=== PATIENT | female | born 1965 | race African-American/Black ===

== ENCOUNTER 2018-09-27 11:44 | Inpatient (IN) | payer OTHER ==
[2018-09-27 12:27] VITALS: BMI 21.6
--- NOTE | 2018-09-27 13:22 | HP ---
CIWA Score Nausea/Vomitin-No Nausea/No Vomiting Muscle Tremors: None Anxiety: 0-No Anxiety, at Ease Paroxysmal Sweats: No Perspiration Orientation: 0-Oriented Tacttile Disturbances: 0-None Auditory Disturbances: 0-None Visual Disturbances: 0-None Headache: 0-None Present - Admission Criteria OASAS Guidelines: Admission for Medically Managed Detox: Requires at least one of the followin. CIWA greater than 12 2. Seizures within the past 24 hours 3. Delirium tremens within the past 24 hours 4. Hallucinations within the past 24 hours 5. Acute intervention needed for co occurring medical disorder 6. Acute intervention needed for co occurring psychiatric disorder 7. Severe withdrawal that cannot be handled at a lower level of care (continued vomiting, continued diarrhea, abnormal vital signs) requiring intravenous medication and/or fluids 8. Patient presents the following: None of the above Admission Criteria Met: Admission criteria not met Admission ROS S - HPI Chief Complaint: alcohol, crack/cocaine, marijuana rehabilitation Allergies/Adverse Reactions: Allergies Allergy/AdvReac Type Severity Reaction Status Date / Time No Known Allergies Allergy Verified 09/27/18 12:14 History of Present Illness: 53 yo female with hx of nicotine, marijuana, crack/cocaine, alcohol dependence is here seeking rehabilitation. Reports was referred from [facility]. Longest period of sobriety one year and four months, reports relapsed two weeks ago. PMHX: glaucoma bilateral, HTN, HIV. Psych: depression and anxiety, insomnia on lexapro and celexa. Denies hx of seizures or blackouts. Last detox three years a [facility]. Exam Limitations: No Limitations - Ebola screening Have you traveled outside of the country in the last 21 days: No Have you had contact with anyone from an Ebola affected area: No - Review of Systems Constitutional: Chills EENT: reports: See HPI Respiratory: reports: No Symptoms reported Cardiac: reports: No Symptoms Reported GI: reports: No Symptoms Reported : reports: Burning (since this past thursday) Musculoskeletal: reports: Joint Pain Integumentary: reports: No Symptoms Reported Neuro: reports: No Symptoms reported Endocrine: reports: Increased Thirst Hematology: reports: See HPI Psychiatric: reports: Orientated x3, Anxious Other Systems: Reviewed and Negative Patient History - Patient Medical History Hx Anemia: No Hx Asthma: No Hx Chronic Obstructive Pulmonary Disease (COPD): No Hx Cancer: No Hx Cardiac Disorders: No Hx Congestive Heart Failure: No Hx Hypertension: Yes Hx Hypercholesterolemia: No Hx Pacemaker: No HX Cerebrovascular Accident: No Hx Seizures: No Hx Dementia: No Hx Diabetes: No Hx Gastrointestinal Disorders: No Hx Liver Disease: No Hx Genitourinary Disorders: No Hx Sexually Transmitted Disorders: Yes (gorrhea ) Hx Renal Disease (ESRD): No Hx Thyroid Disease: No Hx Human Immunodeficiency Virus (HIV): No Hx Hepatitis C: No Hx Depression: Yes (on lexapro ) Hx Suicide Attempt: No Hx Bipolar Disorder: No Hx Schizophrenia: No - Patient Surgical History Past Surgical History: No - PPD History Previous Implant?: No - Reproductive History Patient is a Female of Child Bearing Age (11 -55 yrs old): No - Smoking Cessation Smoking history: Current every day smoker Have you smoked in the past 12 months: Yes Aproximately how many cigarettes per day: 3 Hx Chewing Tobacco Use: No Initiated information on smoking cessation: Yes 'Breaking Loose' booklet given: 09/27/18 - Substance & Tx. History Hx Alcohol Use: Yes Hx Substance Use: Yes Substance Use Type: Alcohol, Cocaine, Marijuana Hx Substance Use Treatment: Yes (Last detox three years a [facility] ) - Substances abused Alcohol Substance route: Oral Frequency: Daily Amount used: 1/5th timur, 1 beer ( 40 oz can), 1 bottle wine - 1L Age of first use: 9 Date of last use: 09/24/18 Crack Substance route: Smoking Frequency: 3-6 times per week Amount used: $80 Age of first use: 16 Date of last use: 09/24/18 Marijuana/Hashish Substance route: Smoking Frequency: 3-6 times per week Amount used: 1 bag Age of first use: 9 Date of last use: 09/24/18 Family Disease History - Family Disease History Family Disease History: Heart Disease: Mother (HTN, alcoholism), Sister (HTN, alcoholism), Other: Brother (alcoholism), Sister Admission Physical Exam [facility] - Vital Signs Vital Signs: Vital Signs - 24 hr 09/27/18 12:22 Temperature 98.1 F Pulse Rate 80 Respiratory 18 Rate Blood Pressure 135/105 H - Physical General Appearance: Yes: Appropriately Dressed, Thin, Anxious HEENTM: Yes: EOMI, Hearing grossly Normal, Normal ENT Inspection, Normocephalic , Normal Voice, QIANA, Pharynx Normal, Tm's normal Respiratory: Yes: Chest Non-Tender, Lungs Clear, Normal Breath Sounds, No Respiratory Distress, No Accessory Muscle Use Neck: Yes: Within Normal Limits Breast: Yes: Breast Exam Deferred Cardiology: Yes: Regular Rhythm, Regular Rate Abdominal: Yes: Normal Bowel Sounds, Non Tender, Flat, Soft Genitourinary: Yes: Within Normal Limits Back: Yes: Normal Inspection Musculoskeletal: Yes: full range of Motion, Gait Steady, Pelvis Stable Extremities: Yes: Normal Capillary Refill, Normal Range of Motion, Other (+ varicose veins b/l lower extremities) Neurological: Yes: public health technologist II-XII NML intact, Fully Oriented, Alert, Motor Strength 5/5, Normal Mood/Affect, Normal Response Integumentary: Yes: Normal Color, Dry, Warm Lymphatic: Yes: Within Normal Limits - Diagnostic (1) Alcohol dependence Current Visit: Yes Status: Acute Qualifiers: Substance use status: uncomplicated Qualified Code(s): F10.20 - Alcohol dependence, uncomplicated (2) Nicotine dependence Current Visit: Yes Status: Acute Qualifiers: Nicotine product type: cigarettes (3) Cocaine dependence Current Visit: Yes Status: Acute Qualifiers: Substance use status: uncomplicated Qualified Code(s): F14.20 - Cocaine dependence, uncomplicated (4) Marijuana dependence Current Visit: Yes Status: Acute (5) Human immunodeficiency virus (HIV) disease Current Visit: Yes Status: Chronic (6) Essential (primary) hypertension Current Visit: Yes Status: Chronic (7) Glaucoma Current Visit: Yes Status: Chronic Qualifiers: Glaucoma type: unspecified Laterality: bilateral Qualified Code(s): H40.9 - Unspecified glaucoma Breathalyzer - Breathalyzer Breathalyzer: 0 POC Urine test - Test device test lot number: [id number] Expiration date: 02/13/20 - Control test control: Yes - Result Urine Test Results: Negative - NO line present Urine Drug Screen - Test Device Lot number: [id number] Expiration date: 05/14/20 - Control Is test valid?: Yes - Results Drug screen NEGATIVE: No Urine drug screen results: THC-Marijuana, JEAN-Cocaine Inpatient Rehab Admission - Rehab Decision to Admit Inpatient rehab admission?: Yes - Initial Determination Are CD services needed?: Yes Free of communicable disease: Yes Not in need of hospitalization: Yes - Rehab Admission Criteria Previous failed treatment: Yes Poor recovery environment: Yes Comorbidities: Yes Lacks judgement: Yes Patient is meeting Inpatient Rehab admission criteria:: Yes
[2018-09-27] MEDS ORDERED: PATIENT'S OWN MEDICATION (NON-FORMULARY) (Amlodipine Besylate/Benazepril [Lotrel 5-10 Mg C PO SCH (13:30)
[2018-09-27] MEDS ORDERED: MAGNESIUM CITRATE 300 ML BOTTLE PO PRN (13:35)
[2018-09-27] MEDS ORDERED: MAG HYDROX/AL HYDROX/SIMETH 30 ML UNIT-DOSE CUP PO PRN (13:35)
[2018-09-27] MEDS ORDERED: NICOTINE POLACRILEX 2 MG GUM BUC PRN (13:35)
[2018-09-27] MEDS ORDERED: MENTHOL/PHENOL 1 EACH UD MM PRN (13:35)
[2018-09-27] MEDS ORDERED: P-EPHED 60MG/TRIPROLIDI 2.5MG TABLET PO PRN (13:35)
[2018-09-27] MEDS ORDERED: LOPERAMIDE HCL 2 MG CAPSULE PO PRN (13:35)
[2018-09-27] MEDS ORDERED: guaiFENesin 200 MG/10 ML 10 ML UNIT-DOSE CUPS PO PRN (13:35)
--- NOTE | 2018-09-27 15:18 | PN ---
[facility] Progress Note Note: Patient reports taking loterl 5-10mg qd at home. no benazipril available. amolidipine 5mg and lisinopril 10 mg qd ordered. Continue to monitor
[2018-09-27] MEDS: LISINOPRIL 10 MG TABLET (FP) PO SCH (15:40)
[2018-09-27] MEDS: amLODIPine BESYLATE 5 MG TABLET (FP) PO SCH (15:40)
[2018-09-27 16:48] LABS: HEMATOCRIT 37.7 % (32.4-45.2); HEMOGLOBIN 12.6 GM/dL (10.7-15.3); MCH 29.8 pg (25.7-33.7); MCHC 33.5 g/dl (32.0-36.0); MEAN PLT VOLUME 8.1 fl (7.5-11.1); PLATELET COUNT 367 K/MM3 (134-434); RBC 4.23 M/mm3 (3.60-5.2); RDW 15.4 % (11.6-15.6); WHITE BLOOD COUNT 3.7 K/mm3 (4.0-10.0)
[2018-09-27 16:57] LABS: ALBUMIN 3.3 g/dl (3.4-5.0); ALK PHOS 60 U/L (45-117); ANION GAP 3 MMOL/L (8-16); BILIRUBIN,TOTAL 0.2 mg/dL (0.2-1); BLOOD UREA NITROGEN 6 mg/dL (7-18); CHLORIDE 104 mmol/L (98-107); CO2 32 mmol/L (21-32); CREATININE 0.8 mg/dL (0.55-1.3); GLUCOSE,RANDOM 89 mg/dL (74-106); POTASSIUM 3.6 mmol/L (3.5-5.1); SGOT/AST 12 U/L (15-37); SGPT/ALT 15 U/L (13-61); SODIUM 140 mmol/L (136-145); TOT PROT 7.9 g/dl (6.4-8.2)
[2018-09-27] MEDS: THIAMINE HCL 100 MG TABLET (FP) PO SCH (21:03)
[2018-09-27] MEDS: MELATONIN 5 MG TABLETS PO PRN (21:04)
[2018-09-27] MEDS: LATANOPROST 0.005% OPHTH SOLN 2.5ML BOTTLE OU SCH (21:04)
[2018-09-28] MEDS: ABACAVIR/DOLUTEGRAVIR/LAMIVUDI (TRIUMEQ) TABLET -NF PO SCH (07:45)
[2018-09-28] MEDS: amLODIPine BESYLATE 5 MG TABLET (FP) PO SCH (09:32)
[2018-09-28] MEDS: NICOTINE 14 MG/24 HOURS TOPICAL PATCH TD SCH (09:32)
[2018-09-28] MEDS: LISINOPRIL 10 MG TABLET (FP) PO SCH (09:33)
[2018-09-28] MEDS: PRENATAL VITAMINS W/ FOLIC ACID TABLET (FP) PO SCH (09:33)
--- NOTE | 2018-09-28 09:42 | CONSULT ---
[facility] Psychiatric Consult - Data Date of interview: 09/28/18 Admission source: [facility] Identifying data: Patient is a 53 year old single female, unemployed, domiciled , and is supported by public assistance. This is patient's first admission to rehab on [facility]. Patient admitted to [facility] for alcohol, cocaine, and marijuana dependence. Substance Abuse History: Smoking Cessation. Smoking history: Current every day smoker. Have you smoked in the past 12 months: Yes. Aproximately how many cigarettes per day: 3. Hx Chewing Tobacco Use: No. Initiated information on smoking cessation: Yes. 'Breaking Loose' booklet given: 09/27/18. - Substance & Tx. History. Hx Alcohol Use: Yes. Hx Substance Use: Yes. Substance Use Type : Alcohol, Cocaine, Marijuana. Hx Substance Use Treatment: Yes (Last detox three years a [facility] ). - Substances abused. Alcohol. Substance route: Oral. Frequency: Daily. Amount used: 1/5th timur, 1 beer ( 40 oz can) , 1 bottle wine - 1L. Age of first use: 9. Date of last use: 09/24/18. Crack. Substance route: Smoking. Frequency: 3-6 times per week. Amount used: $80. Age of first use: 16. Date of last use: 09/24/18. Marijuana/Hashish. Substance route: Smoking. Frequency: 3-6 times per week. Amount used: 1 bag. Age of first use: 9. Date of last use: 09/24/18 Medical History: hypertension, h/o gonorrhea Psychiatric History: Patient's first psychiatric contact was approximately ten years ago at an outpatient clinic to address anxiety and depression. She was diagnosed with depression and was prescribed zoloft. Treatment was discontinued after several years and restarted at [facility] which she is where she is currently receiving psychiatric care by Dr. Martínez. Diagnosis of depressiona and anxiety. Ms. Dick is prescribed Celexa 40mg + Trazodone 100mg ( 30 day prescription on 08/10/18). Patient denies h/o psychiatric hospitalization and suicide attempt. At present she reports stable mood but is experiencing difficulty sleeping. Physical/Sexual Abuse/Trauma History: denies. Mental Status Exam - Mental Status Exam Alert and Oriented to: Time, Place, Person Cognitive Function: Good Patient Appearance: Well Groomed Mood: Euthymic Affect: Mood Congruent Patient Behavior: Appropriate, Cooperative Speech Pattern: Appropriate Voice Loudness: Normal Thought Process: Intact, Goal Oriented Thought Disorder: Not Present Hallucinations: Denies Suicidal Ideation: Denies Homicidal Ideation: Denies Insight/Judgement: Poor Sleep: Poorly Appetite: Fair Muscle strength/Tone: Normal Gait/Station: Normal Psychiatric Findings - Problem List ([place] 1, 2,3) (1) Alcohol dependence Current Visit: Yes Status: Acute Qualifiers: Substance use status: uncomplicated Qualified Code(s): F10.20 - Alcohol dependence, uncomplicated (2) Cocaine dependence Current Visit: Yes Status: Acute Qualifiers: Substance use status: uncomplicated Qualified Code(s): F14.20 - Cocaine dependence, uncomplicated (3) Marijuana dependence Current Visit: Yes Status: Acute (4) Nicotine dependence Current Visit: Yes Status: Acute Qualifiers: Nicotine product type: cigarettes (5) Substance induced mood disorder Current Visit: Yes Status: Acute (6) Substance-induced sleep disorder Current Visit: Yes Status: Acute - Initial Treatment Plan Initial Treatment Plan: Psychoeducation provided. Detoxification in progress. Will order Celexa 40mg + Trazodone 100mg HS. Benefits and side effects discussed. Verbal consent given.
[2018-09-28] MEDS: CITALOPRAM HYDROBROMIDE 20 MG TABLET (FP) PO SCH (10:26)
--- NOTE | 2018-09-28 10:54 | EKG ---
Test Reason : Blood Pressure : / mmHG Vent. Rate : 066 BPM Atrial Rate : 066 BPM P-R Int : 184 ms QRS Dur : 096 ms QT Int : 430 ms P-R-T Axes : 066 013 032 degrees QTc Int : 450 ms NORMAL SINUS RHYTHM NORMAL ECG NO PREVIOUS ECGS AVAILABLE Confirmed by MD Kim, Chino ([id number]) on 09/28/2018 10:54:14 AM Referred By: Confirmed By:Chino Alvarez MD
[2018-09-28] MEDS: ACETAMINOPHEN 325 MG TABLET (FP) PO PRN (11:12)
[2018-09-28] MEDS ORDERED: ONDANSETRON *ODT* 4 MG TABLET SL PRN (13:28)
--- NOTE | 2018-09-28 13:33 | PN ---
[facility] Progress Note Note: PT C/O NAUSEA BUT NO VOMITING. DENIES ABDOMINAL DISCOMFORT. ALERT O X 3. Vital Signs 09/28/18 09/28/18 07:06 09:28 Temperature 98.0 F Pulse Rate 72 64 Respiratory 16 18 Rate Blood Pressure 164/90 141/98 PLAN:ZOFRAN 8MG SL Q8H PRN FOR N/V
--- NOTE | 2018-09-28 13:41 | PN ---
[facility] Progress Note (SOAP) Subjective: Patient c/o nausea; said she was not able to complete breakfast because she felt like she was going to throw up. Client is on Triumeq and usually takes it after she eats. She believes that taking the Triumeq without food is the reason for her nausea. Has used Mylanta in the past with good effect. Objective: 09/28/18 13:40 Abd soft, non-tender, non-distended, +BS. Assessment: 09/28/18 13:40 nausea Plan: Client has Mylanta ordered. Encouraged her to ask the nurse for Mylanta when she feels nauseated. If there is no relief, will reassess.
[2018-09-28] MEDS: THIAMINE HCL 100 MG TABLET (FP) PO SCH (21:22)
[2018-09-28] MEDS: LATANOPROST 0.005% OPHTH SOLN 2.5ML BOTTLE OU SCH (21:22)
[2018-09-28] MEDS: traZODone HCL 100 MG TABLET (FP) PO SCH (21:22)
[2018-09-29] MEDS ORDERED: PT OWN MED DRAWER 7, Y5N ONE (06:54)
[2018-09-29] MEDS ORDERED: ALBUTEROL SO4 8 GM HFA INHALER IH PRN (06:58)
[2018-09-29] MEDS: ABACAVIR/DOLUTEGRAVIR/LAMIVUDI (TRIUMEQ) TABLET -NF PO SCH (09:06)
[2018-09-29] MEDS: LISINOPRIL 10 MG TABLET (FP) PO SCH (09:13)
[2018-09-29] MEDS: amLODIPine BESYLATE 5 MG TABLET (FP) PO SCH (09:13)
[2018-09-29] MEDS: CITALOPRAM HYDROBROMIDE 20 MG TABLET (FP) PO SCH (09:13)
[2018-09-29] MEDS: NICOTINE 14 MG/24 HOURS TOPICAL PATCH TD SCH (09:13)
[2018-09-29] MEDS: PRENATAL VITAMINS W/ FOLIC ACID TABLET (FP) PO SCH (09:13)
--- NOTE | 2018-09-29 10:18 | PN ---
[facility] Progress Note Note: Requesting Triumeq after breakfast to relieve nausea. Order placed.
[2018-09-29] MEDS: valACYclovir HCL 500 MG TABLET (FP) PO SCH ×2 (10:27→21:46)
[2018-09-29] MEDS: ACETAMINOPHEN 325 MG TABLET (FP) PO PRN (10:35)
[2018-09-29] MEDS: BUDESONIDE/FORMETEROL FUMARATE 160/4.5 mcg INHALER IH SCH ×2 (10:56→21:47)
[2018-09-29] MEDS: traZODone HCL 100 MG TABLET (FP) PO SCH (21:46)
[2018-09-29] MEDS: hydrOXYzine PAMOATE 50 MG CAPSULE (FP) PO PRN (21:46)
[2018-09-29] MEDS: THIAMINE HCL 100 MG TABLET (FP) PO SCH (21:46)
[2018-09-29] MEDS: LATANOPROST 0.005% OPHTH SOLN 2.5ML BOTTLE OU SCH (21:48)
[2018-09-30] MEDS ORDERED: PT OWN MED DRAWER 7, Y5N ONE (08:51)
[2018-09-30] MEDS: PRENATAL VITAMINS W/ FOLIC ACID TABLET (FP) PO SCH (09:49)
[2018-09-30] MEDS: LISINOPRIL 10 MG TABLET (FP) PO SCH (09:49)
[2018-09-30] MEDS: NICOTINE 14 MG/24 HOURS TOPICAL PATCH TD SCH (09:49)
[2018-09-30] MEDS: amLODIPine BESYLATE 5 MG TABLET (FP) PO SCH (09:49)
[2018-09-30] MEDS: CITALOPRAM HYDROBROMIDE 20 MG TABLET (FP) PO SCH (09:49)
[2018-09-30] MEDS: BUDESONIDE/FORMETEROL FUMARATE 160/4.5 mcg INHALER IH SCH ×2 (09:50→21:37)
[2018-09-30] MEDS: valACYclovir HCL 500 MG TABLET (FP) PO SCH ×2 (09:51→21:36)
[2018-09-30] MEDS ORDERED: ABACAVIR/DOLUTEGRAVIR/LAMIVUDI (TRIUMEQ) TABLET -NF PO SCH (10:00)
[2018-09-30] MEDS: MAGNESIUM HYDROX 2400MG/30ML ORAL SUSPENSION 30 ML CUP PO PRN (18:08)
[2018-09-30] MEDS: THIAMINE HCL 100 MG TABLET (FP) PO SCH (21:36)
[2018-09-30] MEDS: traZODone HCL 100 MG TABLET (FP) PO SCH (21:36)
[2018-09-30] MEDS: LATANOPROST 0.005% OPHTH SOLN 2.5ML BOTTLE OU SCH (21:36)
[2018-10-01] MEDS ORDERED: PT OWN MED DRAWER 7, Y5N ONE (08:33)
[2018-10-01] MEDS: valACYclovir HCL 500 MG TABLET (FP) PO SCH ×2 (09:56→21:51)
[2018-10-01] MEDS: LISINOPRIL 10 MG TABLET (FP) PO SCH (09:56)
[2018-10-01] MEDS: CITALOPRAM HYDROBROMIDE 20 MG TABLET (FP) PO SCH (09:56)
[2018-10-01] MEDS: PRENATAL VITAMINS W/ FOLIC ACID TABLET (FP) PO SCH (09:56)
[2018-10-01] MEDS: amLODIPine BESYLATE 5 MG TABLET (FP) PO SCH (09:56)
[2018-10-01] MEDS: ABACAVIR/DOLUTEGRAVIR/LAMIVUDI (TRIUMEQ) TABLET -NF PO SCH (09:57)
[2018-10-01] MEDS: NICOTINE 14 MG/24 HOURS TOPICAL PATCH TD SCH (09:58)
[2018-10-01] MEDS: BUDESONIDE/FORMETEROL FUMARATE 160/4.5 mcg INHALER IH SCH ×2 (09:58→21:52)
[2018-10-01] MEDS: MAGNESIUM HYDROX 2400MG/30ML ORAL SUSPENSION 30 ML CUP PO PRN (09:59)
[2018-10-01] MEDS: ACETAMINOPHEN 325 MG TABLET (FP) PO PRN (16:44)
[2018-10-01] MEDS: hydrOXYzine PAMOATE 50 MG CAPSULE (FP) PO PRN (21:51)
[2018-10-01] MEDS: traZODone HCL 100 MG TABLET (FP) PO SCH (21:51)
[2018-10-01] MEDS: THIAMINE HCL 100 MG TABLET (FP) PO SCH (21:52)
[2018-10-01] MEDS: LATANOPROST 0.005% OPHTH SOLN 2.5ML BOTTLE OU SCH (23:14)
[2018-10-02] MEDS: amLODIPine BESYLATE 5 MG TABLET (FP) PO SCH (09:32)
[2018-10-02] MEDS: NICOTINE 14 MG/24 HOURS TOPICAL PATCH TD SCH (09:32)
[2018-10-02] MEDS: PRENATAL VITAMINS W/ FOLIC ACID TABLET (FP) PO SCH (09:32)
[2018-10-02] MEDS: CITALOPRAM HYDROBROMIDE 20 MG TABLET (FP) PO SCH (09:32)
[2018-10-02] MEDS: ABACAVIR/DOLUTEGRAVIR/LAMIVUDI (TRIUMEQ) TABLET -NF PO SCH (09:33)
[2018-10-02] MEDS: LISINOPRIL 10 MG TABLET (FP) PO SCH (09:33)
[2018-10-02] MEDS: BUDESONIDE/FORMETEROL FUMARATE 160/4.5 mcg INHALER IH SCH ×2 (09:33→21:17)
[2018-10-02] MEDS: valACYclovir HCL 500 MG TABLET (FP) PO SCH ×2 (09:34→21:16)
[2018-10-02] MEDS: traZODone HCL 100 MG TABLET (FP) PO SCH (21:16)
[2018-10-02] MEDS: THIAMINE HCL 100 MG TABLET (FP) PO SCH (21:16)
[2018-10-02] MEDS: LATANOPROST 0.005% OPHTH SOLN 2.5ML BOTTLE OU SCH (21:17)
[2018-10-03] MEDS ORDERED: PT OWN MED DRAWER 7, Y5N ONE ×3 (08:35→23:50)
[2018-10-03] MEDS: BUDESONIDE/FORMETEROL FUMARATE 160/4.5 mcg INHALER IH SCH ×2 (09:57→21:20)
[2018-10-03] MEDS: CITALOPRAM HYDROBROMIDE 20 MG TABLET (FP) PO SCH (09:57)
[2018-10-03] MEDS: amLODIPine BESYLATE 5 MG TABLET (FP) PO SCH (09:58)
[2018-10-03] MEDS: valACYclovir HCL 500 MG TABLET (FP) PO SCH ×2 (09:58→21:19)
[2018-10-03] MEDS: LISINOPRIL 10 MG TABLET (FP) PO SCH (09:58)
[2018-10-03] MEDS: ABACAVIR/DOLUTEGRAVIR/LAMIVUDI (TRIUMEQ) TABLET -NF PO SCH (09:58)
[2018-10-03] MEDS: PRENATAL VITAMINS W/ FOLIC ACID TABLET (FP) PO SCH (09:58)
[2018-10-03] MEDS: NICOTINE 14 MG/24 HOURS TOPICAL PATCH TD SCH (09:59)
[2018-10-03] MEDS: IBUPROFEN 400 MG TABLET (FP) PO PRN (09:59)
[2018-10-03] MEDS: LATANOPROST 0.005% OPHTH SOLN 2.5ML BOTTLE OU SCH (21:20)
[2018-10-03] MEDS: traZODone HCL 100 MG TABLET (FP) PO SCH (21:20)
[2018-10-03] MEDS: THIAMINE HCL 100 MG TABLET (FP) PO SCH (21:20)
[2018-10-04] MEDS: valACYclovir HCL 500 MG TABLET (FP) PO SCH ×2 (10:13→21:43)
[2018-10-04] MEDS: amLODIPine BESYLATE 5 MG TABLET (FP) PO SCH (10:13)
[2018-10-04] MEDS: BUDESONIDE/FORMETEROL FUMARATE 160/4.5 mcg INHALER IH SCH ×2 (10:13→21:44)
[2018-10-04] MEDS: CITALOPRAM HYDROBROMIDE 20 MG TABLET (FP) PO SCH (10:13)
[2018-10-04] MEDS: LISINOPRIL 10 MG TABLET (FP) PO SCH (10:13)
[2018-10-04] MEDS: PRENATAL VITAMINS W/ FOLIC ACID TABLET (FP) PO SCH (10:13)
[2018-10-04] MEDS: ABACAVIR/DOLUTEGRAVIR/LAMIVUDI (TRIUMEQ) TABLET -NF PO SCH (10:13)
[2018-10-04] MEDS: NICOTINE 14 MG/24 HOURS TOPICAL PATCH TD SCH (10:13)
[2018-10-04] MEDS ORDERED: PT OWN MED DRAWER 7, Y5N ONE (12:35)
[2018-10-04] MEDS: IBUPROFEN 400 MG TABLET (FP) PO PRN (17:48)
[2018-10-04] MEDS: THIAMINE HCL 100 MG TABLET (FP) PO SCH (21:43)
[2018-10-04] MEDS: hydrOXYzine PAMOATE 50 MG CAPSULE (FP) PO PRN (21:43)
[2018-10-04] MEDS: traZODone HCL 100 MG TABLET (FP) PO SCH (21:43)
[2018-10-04] MEDS: MELATONIN 5 MG TABLETS PO PRN (21:44)
[2018-10-04] MEDS: LATANOPROST 0.005% OPHTH SOLN 2.5ML BOTTLE OU SCH (21:45)
[2018-10-05] MEDS ORDERED: PT OWN MED DRAWER 7, Y5N ONE (08:46)
[2018-10-05] MEDS: PRENATAL VITAMINS W/ FOLIC ACID TABLET (FP) PO SCH (10:14)
[2018-10-05] MEDS: NICOTINE 14 MG/24 HOURS TOPICAL PATCH TD SCH (10:14)
[2018-10-05] MEDS: CITALOPRAM HYDROBROMIDE 20 MG TABLET (FP) PO SCH (10:14)
[2018-10-05] MEDS: valACYclovir HCL 500 MG TABLET (FP) PO SCH ×2 (10:14→21:35)
[2018-10-05] MEDS: LISINOPRIL 10 MG TABLET (FP) PO SCH (10:15)
[2018-10-05] MEDS: ABACAVIR/DOLUTEGRAVIR/LAMIVUDI (TRIUMEQ) TABLET -NF PO SCH (10:15)
[2018-10-05] MEDS: BUDESONIDE/FORMETEROL FUMARATE 160/4.5 mcg INHALER IH SCH ×2 (10:15→21:35)
[2018-10-05] MEDS: amLODIPine BESYLATE 5 MG TABLET (FP) PO SCH (10:15)
--- NOTE | 2018-10-05 14:58 | PN ---
[facility] Progress Note Note: Reviewed findings of the knee x-ray with patient; no fracture or subluxation noted; calcifications present. Advised client to see PCP and/or unemployment specialist when back in the community.
[2018-10-05] MEDS: traZODone HCL 100 MG TABLET (FP) PO SCH (21:34)
[2018-10-05] MEDS: THIAMINE HCL 100 MG TABLET (FP) PO SCH (21:34)
[2018-10-05] MEDS: MELATONIN 5 MG TABLETS PO PRN (21:35)
[2018-10-05] MEDS: LATANOPROST 0.005% OPHTH SOLN 2.5ML BOTTLE OU SCH (21:36)
[2018-10-06] MEDS: CITALOPRAM HYDROBROMIDE 20 MG TABLET (FP) PO SCH (09:53)
[2018-10-06] MEDS: LISINOPRIL 10 MG TABLET (FP) PO SCH (09:53)
[2018-10-06] MEDS: PRENATAL VITAMINS W/ FOLIC ACID TABLET (FP) PO SCH (09:53)
[2018-10-06] MEDS: amLODIPine BESYLATE 5 MG TABLET (FP) PO SCH (09:53)
[2018-10-06] MEDS: NICOTINE 14 MG/24 HOURS TOPICAL PATCH TD SCH (09:53)
[2018-10-06] MEDS ORDERED: PT OWN MED DRAWER 7, Y5N ONE ×2 (09:56→11:27)
[2018-10-06] MEDS: BUDESONIDE/FORMETEROL FUMARATE 160/4.5 mcg INHALER IH SCH ×2 (11:33→21:23)
[2018-10-06] MEDS: valACYclovir HCL 500 MG TABLET (FP) PO SCH ×2 (11:33→21:21)
[2018-10-06] MEDS: ABACAVIR/DOLUTEGRAVIR/LAMIVUDI (TRIUMEQ) TABLET -NF PO SCH (11:33)
[2018-10-06] MEDS: IBUPROFEN 400 MG TABLET (FP) PO PRN (11:35)
[2018-10-06] MEDS: THIAMINE HCL 100 MG TABLET (FP) PO SCH (21:21)
[2018-10-06] MEDS: hydrOXYzine PAMOATE 50 MG CAPSULE (FP) PO PRN (21:21)
[2018-10-06] MEDS: traZODone HCL 100 MG TABLET (FP) PO SCH (21:21)
[2018-10-06] MEDS: LATANOPROST 0.005% OPHTH SOLN 2.5ML BOTTLE OU SCH (21:22)
[2018-10-07] MEDS ORDERED: PT OWN MED DRAWER 7, Y5N ONE (08:34)
[2018-10-07] MEDS: amLODIPine BESYLATE 5 MG TABLET (FP) PO SCH (09:36)
[2018-10-07] MEDS: NICOTINE 14 MG/24 HOURS TOPICAL PATCH TD SCH (09:36)
[2018-10-07] MEDS: BUDESONIDE/FORMETEROL FUMARATE 160/4.5 mcg INHALER IH SCH ×2 (09:36→21:17)
[2018-10-07] MEDS: LISINOPRIL 10 MG TABLET (FP) PO SCH (09:36)
[2018-10-07] MEDS: valACYclovir HCL 500 MG TABLET (FP) PO SCH ×2 (09:36→21:17)
[2018-10-07] MEDS: PRENATAL VITAMINS W/ FOLIC ACID TABLET (FP) PO SCH (09:37)
[2018-10-07] MEDS: ABACAVIR/DOLUTEGRAVIR/LAMIVUDI (TRIUMEQ) TABLET -NF PO SCH (09:37)
[2018-10-07] MEDS: CITALOPRAM HYDROBROMIDE 20 MG TABLET (FP) PO SCH (09:37)
[2018-10-07] MEDS: THIAMINE HCL 100 MG TABLET (FP) PO SCH (21:17)
[2018-10-07] MEDS: traZODone HCL 100 MG TABLET (FP) PO SCH (21:17)
[2018-10-07] MEDS: LATANOPROST 0.005% OPHTH SOLN 2.5ML BOTTLE OU SCH (21:19)
[2018-10-08] MEDS: PRENATAL VITAMINS W/ FOLIC ACID TABLET (FP) PO SCH (10:00)
[2018-10-08] MEDS: NICOTINE 14 MG/24 HOURS TOPICAL PATCH TD SCH (10:01)
[2018-10-08] MEDS: CITALOPRAM HYDROBROMIDE 20 MG TABLET (FP) PO SCH (10:01)
[2018-10-08] MEDS: valACYclovir HCL 500 MG TABLET (FP) PO SCH ×2 (10:01→21:44)
[2018-10-08] MEDS: amLODIPine BESYLATE 5 MG TABLET (FP) PO SCH (10:01)
[2018-10-08] MEDS: IBUPROFEN 400 MG TABLET (FP) PO PRN (10:03)
[2018-10-08] MEDS: BUDESONIDE/FORMETEROL FUMARATE 160/4.5 mcg INHALER IH SCH ×2 (10:05→21:45)
[2018-10-08] MEDS: LISINOPRIL 10 MG TABLET (FP) PO SCH (10:05)
[2018-10-08] MEDS ORDERED: PT OWN MED DRAWER 7, Y5N ONE ×2 (11:16→19:23)
[2018-10-08] MEDS: ABACAVIR/DOLUTEGRAVIR/LAMIVUDI (TRIUMEQ) TABLET -NF PO SCH (11:18)
[2018-10-08] MEDS: traZODone HCL 100 MG TABLET (FP) PO SCH (21:44)
[2018-10-08] MEDS: THIAMINE HCL 100 MG TABLET (FP) PO SCH (21:44)
[2018-10-08] MEDS: MELATONIN 5 MG TABLETS PO PRN (21:45)
[2018-10-08] MEDS: LATANOPROST 0.005% OPHTH SOLN 2.5ML BOTTLE OU SCH (21:45)
[2018-10-09] MEDS: NICOTINE 14 MG/24 HOURS TOPICAL PATCH TD SCH (10:08)
[2018-10-09] MEDS: ABACAVIR/DOLUTEGRAVIR/LAMIVUDI (TRIUMEQ) TABLET -NF PO SCH (10:09)
[2018-10-09] MEDS: BUDESONIDE/FORMETEROL FUMARATE 160/4.5 mcg INHALER IH SCH ×2 (10:09→21:16)
[2018-10-09] MEDS ORDERED: PT OWN MED DRAWER 7, Y5N ONE (10:10)
[2018-10-09] MEDS: PRENATAL VITAMINS W/ FOLIC ACID TABLET (FP) PO SCH (10:10)
[2018-10-09] MEDS: amLODIPine BESYLATE 5 MG TABLET (FP) PO SCH (10:10)
[2018-10-09] MEDS: LISINOPRIL 10 MG TABLET (FP) PO SCH (10:10)
[2018-10-09] MEDS: CITALOPRAM HYDROBROMIDE 20 MG TABLET (FP) PO SCH (10:10)
[2018-10-09] MEDS: valACYclovir HCL 500 MG TABLET (FP) PO SCH ×2 (10:10→21:16)
[2018-10-09] MEDS: IBUPROFEN 400 MG TABLET (FP) PO PRN (10:11)
[2018-10-09] MEDS: traZODone HCL 100 MG TABLET (FP) PO SCH (21:16)
[2018-10-09] MEDS: THIAMINE HCL 100 MG TABLET (FP) PO SCH (21:16)
[2018-10-09] MEDS: MELATONIN 5 MG TABLETS PO PRN (21:18)
[2018-10-09] MEDS: LATANOPROST 0.005% OPHTH SOLN 2.5ML BOTTLE OU SCH (21:18)
[2018-10-10] MEDS ORDERED: PT OWN MED DRAWER 7, Y5N ONE ×3 (07:19→19:06)
[2018-10-10] MEDS: NICOTINE 14 MG/24 HOURS TOPICAL PATCH TD SCH (09:55)
[2018-10-10] MEDS: BUDESONIDE/FORMETEROL FUMARATE 160/4.5 mcg INHALER IH SCH ×2 (09:55→21:04)
[2018-10-10] MEDS: PRENATAL VITAMINS W/ FOLIC ACID TABLET (FP) PO SCH (09:56)
[2018-10-10] MEDS: CITALOPRAM HYDROBROMIDE 20 MG TABLET (FP) PO SCH (09:56)
[2018-10-10] MEDS: amLODIPine BESYLATE 5 MG TABLET (FP) PO SCH (09:56)
[2018-10-10] MEDS: ABACAVIR/DOLUTEGRAVIR/LAMIVUDI (TRIUMEQ) TABLET -NF PO SCH (09:56)
[2018-10-10] MEDS: valACYclovir HCL 500 MG TABLET (FP) PO SCH ×2 (09:56→21:04)
[2018-10-10] MEDS: LISINOPRIL 10 MG TABLET (FP) PO SCH (09:56)
[2018-10-10] MEDS: MELATONIN 5 MG TABLETS PO PRN (21:04)
[2018-10-10] MEDS: LATANOPROST 0.005% OPHTH SOLN 2.5ML BOTTLE OU SCH (21:04)
[2018-10-10] MEDS: traZODone HCL 100 MG TABLET (FP) PO SCH (21:04)
[2018-10-10] MEDS: THIAMINE HCL 100 MG TABLET (FP) PO SCH (21:04)
--- NOTE | 2018-10-11 06:36 | PN ---
[facility] Progress Note Note: Patient is scheduled for discharged today. Scripts for 30 days supply of medications(Celexa 40 mg/d, Trazadone 100 mg/hs) are electronically transmitted to [facility] at [address] [place] [id number]
[2018-10-11 06:54] VITALS: BP 122/87; PULSE 69; TEMP 98.1
[2018-10-11] MEDS ORDERED: PT OWN MED DRAWER 7, Y5N ONE (08:34)
[2018-10-11] MEDS: NICOTINE 14 MG/24 HOURS TOPICAL PATCH TD SCH (09:08)
[2018-10-11] MEDS: CITALOPRAM HYDROBROMIDE 20 MG TABLET (FP) PO SCH (09:08)
[2018-10-11] MEDS: PRENATAL VITAMINS W/ FOLIC ACID TABLET (FP) PO SCH (09:09)
[2018-10-11] MEDS: LISINOPRIL 10 MG TABLET (FP) PO SCH (09:09)
[2018-10-11] MEDS: BUDESONIDE/FORMETEROL FUMARATE 160/4.5 mcg INHALER IH SCH (09:09)
[2018-10-11] MEDS: amLODIPine BESYLATE 5 MG TABLET (FP) PO SCH (09:09)
[2018-10-11] MEDS: ABACAVIR/DOLUTEGRAVIR/LAMIVUDI (TRIUMEQ) TABLET -NF PO SCH (09:10)
[2018-10-11] MEDS: valACYclovir HCL 500 MG TABLET (FP) PO SCH (09:10)
--- NOTE | 2018-10-11 11:40 | PN ---
[facility] Progress Note Note: PT COMPLETED REHAB AND DISCHARGED TODAY. PT HAS BEEN REFERRED TO [facility] AFTERCARE PER COUNSELORS NOTE. PT REPORTS SHE HAS PCP DR. STEVEN AT THE [facility] ON [address] [place] [address] FOR MEDICAL MANAGEMENT. [facility] RX WAS ELECTRONICALLY SENT TO [facility] FOR ORCHESTRA CONDUCTOR AFTER DISCHARGE. PT IS ALERT ORIENTED X 3. DENIES S/H/I. Home Medications Medication Instructions Recorded Amlodipine Besylate/Benazepril 1 cap PO DAILY 09/27/18 [Lotrel 5-10 mg Capsule] Amlodipine/Valsartan/Hcthiazid 1 each PO DAILY 09/27/18 [Rhyoa-Cwoji-Lttv 10-160-25 mg] Citalopram Hydrobromide [Celexa -] 40 mg PO DAILY 09/27/18 Abacavir/Dolutegravir/Lamivudi 1 each PO DAILY #30 tablet 10/11/18 [Triumeq (Non-Formulary)] Albuterol Sulfate Inhaler - 2 puff IH Q4H PRN #1 inhaler 10/11/18 [Ventolin HFA Inhaler -] Amlodipine Besylate [Norvasc -] 5 mg PO DAILY #30 tablet 10/11/18 Citalopram Hydrobromide [Celexa -] 40 mg PO DAILY #60 tablet 10/11/18 Latanoprost 0.005% Eye Drops 1 drop OD HS #1 drops 10/11/18 [Xalatan 0.005% Eye Drops -] Lisinopril [Prinivil] 10 mg PO DAILY #30 tablet 10/11/18 traZODone HCL [Desyrel -] 100 mg PO HS #30 tablet 10/11/18 Vital Signs 10/11/18 06:53 Temperature 98.1 F Pulse Rate 69 Respiratory 18 Rate Blood Pressure 122/87 Laboratory Tests 09/27/18 09/27/18 09/27/18 14:00 14:00 14:00 WBC 3.7 L RBC 4.23 Hgb 12.6 Hct 37.7 MCV 89.0 MCH 29.8 MCHC 33.5 RDW 15.4 Plt Count 367 MPV 8.1 Sodium 140 Potassium 3.6 Chloride 104 Carbon Dioxide 32 Anion Gap 3 L BUN 6 L Creatinine 0.8 Creat Clearance w eGFR 74.47 Random Glucose 89 Calcium 9.0 Total Bilirubin 0.2 AST 12 L ALT 15 Alkaline Phosphatase 60 Total Protein 7.9 Albumin 3.3 L RPR Titer Nonreactive NAD MEDICALLY STABLE PLAN;FOLLOW UP WITH CD AFTERCARE RECOMMENDED. FOLLOW UP WITH PCP INDICATED ABOVE WITHIN 1-2 WEEKS AFTER DISCHARGE.
== END 2018-10-11 09:16 | disposition home or self-care (01) | DRG 772 ==
LOC: YASAS 11:44 → Y3E 14:31
PROVIDERS: ADMIT Neuromusculoskeletal Medicine & OMM; ATTEND Neuromusculoskeletal Medicine & OMM
PROC: HZ42ZZZ Group Counseling for Substance Abuse Treatment, Cognitive-Behavioral (ICD-10-PCS; principal; 2018-09-27)
DX: F10.20 Alcohol dependence, uncomplicated (principal); F14.20 Cocaine dependence, uncomplicated; F12.20 Cannabis dependence, uncomplicated; F17.210 Nicotine dependence, cigarettes, uncomplicated; F19.24 Other psychoactive substance dependence with psychoactive substance-induced mood disorder; F19.282 Other psychoactive substance dependence with psychoactive substance-induced sleep disorder; Z21 Asymptomatic human immunodeficiency virus [HIV] infection status; I10 Essential (primary) hypertension; H40.9 Unspecified glaucoma; Z86.19 Personal history of other infectious and parasitic diseases
CPT/HCPCS: 36415; 73560-TC-LT-FY; 80053; 85027; 86593; 93005; 93010; Q0162